=== PATIENT | male | born 1950 | race Caucasian/White ===

== ENCOUNTER 2018-07-06 11:27 | Observation (INO) | payer MEDICARE, OTHER ==
[~2018-07-06] VITALS: Ht 172.7 cm; Wt 68.5 kg
[2018-07-06] VITALS (8 sets, daily range): BP systolic 114–164; BP diastolic 71–96
[2018-07-06 12:55] LABS: HEMATOCRIT 45.6 % (42.0-52.0); HEMOGLOBIN 15.1 gm/dL (14.0-18.0); MCH 30.8 pg (26.0-34.0); MCHC 33.2 g/dL (28.0-37.0); MCV 92.9 fL (80.0-100.0); MPV 7.9 fl. (7.2-11.1); RBC 4.91 mil/uL (4.50-6.00); RDW-CV 14.6 % (10.5-14.5); WBC 11.1 thou/uL (4.0-11.0)
[2018-07-06] MEDS ORDERED: ZANTAC 150MG T150 MG PO (12:56)
[2018-07-06] MEDS ORDERED: NORVASC2.5 MG PO (12:58)
[2018-07-06] MEDS ORDERED: NITROGLYCERIN0.4 MG SUBLING (12:59)
[2018-07-06] MEDS ORDERED: LIPITOR 20 MG T20 M1 PO (13:00)
[2018-07-06] MEDS ORDERED: SPIRIVA INH (13:01)
[2018-07-06] MEDS ORDERED: SINGULAIR 10 MG10 M1 PO (13:02)
[2018-07-06] MEDS ORDERED: SYMBICORT160 MCG/4. INH (13:03)
[2018-07-06] MEDS ORDERED: IPRATROPIU0.2 MG/1 M INH (13:04)
[2018-07-06] MEDS ORDERED: ALBUTEROL2.5 MG/0.5 INH (13:04)
[2018-07-06 13:05] LABS: ANION GAP 10 mmol/L (7-16); APTT 29.2 Seconds (25.0-31.3); BUN 16 mg/dL (7-18); CALCIUM 8.8 mg/dL (8.5-10.1); CHLORIDE 102 mmol/L (98-107); CO2 28 mmol/L (21-32); CREATININE 0.9 mg/dL (0.6-1.3); GLUCOSE 90 mg/dL (70-99); POTASSIUM 4.1 mmol/L (3.5-5.1); PROTIME 10.4 Seconds (9.20-11.50); SODIUM 140 mmol/L (136-145)
[2018-07-06] MEDS ORDERED: CLARITIN10 MG PO (13:05)
[2018-07-06] MEDS ORDERED: PROAIR RESPICL90 MCG INH (13:06)
[2018-07-06] MEDS ORDERED: ASPIRIN325 PO (13:08)
[2018-07-06 13:09] LABS: ALBUMIN 3.2 g/dL (3.4-5.0); ALKALINE PHOSPHATASE 83 U/L (46-116); CHOLESTEROL 114 mg/dL (<200); HDL CHOLESTEROL 38 mg/dL (>40); LDL CHOLESTEROL 63 mg/dL (<100); SGOT 14 U/L (15-37); SGPT 14 U/L (30-65); TOTAL BILIRUBIN 0.7 mg/dL (<0.1-1.0); TOTAL PROTEIN 6.6 g/dL (6.4-8.2); TRIGLYCERIDE 65 mg/dL (<150); VLDL 13 mg/dL (<40)
[2018-07-06 13:10] LABS: SERUM ASSESSMENT Clear
--- NOTE | 2018-07-06 16:31 | EKG ---
[place] [address] ELECTROCARDIOGRAM REPORT Name: DAVID HAYES Room: [facility]#: [id number] Admission: 07/06/18 Attend Phys: Rogelio Gorman MD Discharge: Date of : 48 Report #: [id number] THIS REPORT FOR: //name// [facility] Test Date: 2018-07-06 Test Time: 12:59:40 Pat Name: DAVID ABIGAIL Department: Room: Gender: Craft Worker: [facility] : 1950 Requested By: Rogelio Gorman Order Number: [id number] Reading MD: Rogelio Gorman Measurements Intervals [place] Rate: 86 P: 86 ND: 123 QRS: 85 QRSD: 89 T: 62 QT: 342 QTc: 409 Interpretive Statements Sinus rhythm Low voltage, extremity leads Baseline wander in lead(s) V2 No previous ECG available for comparison Electronically Signed On 07-06-2018 16:31:19 LOW VISION THERAPIST by Rogelio Gorman [email or web address] <ELECTRONICALLY SIGNED> By: Rogelio Gorman MD, MERGED WITH [facility] 07/06/18 163 [id number] Rogelio Gorman MD, FAC /EPI
--- NOTE | 2018-07-06 19:49 | NUR ---
PT ARRIVED TO ROOM 209 FROM DERIVATIVES TRADER AT APPROX 1830, REPORT RECIEVED FROM PRINCESS CHILEL. PT A/OX4, C/O SOME CHEST PAIN, RIGHT WRIST HAS VASC BAND IN PLACE WITH 11 CC OF AIR. NOHEMATOMA OR BLEEDING PRESENT. VSS, PT ORIENTED TO ROOM AND STAFF. PT INSTRUCTED BEDREST UNTILL APPROX 11 PM. PT VERBALIZED UNDERSTANDING, REPORT GIVEN TO NIGHT RN WILL.
[2018-07-07] VITALS: BP 138/68
[2018-07-07 04:00] VITALS: BP 147/85
[2018-07-07 05:50] LABS: HEMATOCRIT 41.9 % (42.0-52.0); HEMOGLOBIN 13.9 gm/dL (14.0-18.0); MCHC 33.2 g/dL (28.0-37.0); MCV 93.4 fL (80.0-100.0); MPV 7.7 fl. (7.2-11.1); RBC 4.48 mil/uL (4.50-6.00); RDW-CV 14.2 % (10.5-14.5)
[2018-07-07 06:14] LABS: ALBUMIN 2.8 g/dL (3.4-5.0); CALCIUM 8.5 mg/dL (8.5-10.1); CREATININE 0.9 mg/dL (0.6-1.3); POTASSIUM 3.9 mmol/L (3.5-5.1); TOTAL BILIRUBIN 0.3 mg/dL (<0.1-1.0); TOTAL PROTEIN 5.9 g/dL (6.4-8.2)
[2018-07-07 06:15] LABS: TROPONIN-I LEVEL 1.02 ng/mL (<0.06)
[2018-07-07 06:24] VITALS: BP 164/71
--- NOTE | 2018-07-07 07:33 | NUR ---
VITALS WNL. SEE MAR. SEE CHARTING. HOURLY ROUNDING FOR SAFETY.
[2018-07-07 08:15] VITALS: BP 144/65
[2018-07-07 08:28] VITALS: BP 144/65
[2018-07-07] MEDS ORDERED: EFFIENT10 MG PO (09:38)
[2018-07-07 10:04] VITALS: BP 144/65
--- NOTE | 2018-07-07 10:50 | NUR ---
IV AND TELE DISCONTINUED. PT UNDERSTANDS ALL FOLLOW UP ORDERS. WILL DC TO HOME.
--- NOTE | 2018-07-07 11:41 | EKG ---
[place] [address] ELECTROCARDIOGRAM REPORT Name: DAVID HAYES Room: [address]#: [id number] Admission: 07/06/18 Attend Phys: Rogelio Gorman MD Discharge: 07/07/18 Date of : 48 Report #: [id number] THIS REPORT FOR: //name// [facility] Test Date: 2018-07-07 Test Time: 08:18:31 Pat Name: DAVID HAYES Department: Room: [facility] Gender: M Sole Tier: : 1950 Requested By: Alf Noble Order Number: [id number] Reading MD: Raza Rodriguez Measurements Intervals [place] Rate: 82 P: 83 FL: 126 QRS: 85 QRSD: 86 T: 69 QT: 356 QTc: 416 Interpretive Statements Sinus rhythm Borderline right axis deviation Low voltage, extremity leads Baseline wander in lead(s) II,aVF Compared to ECG 07/06/2018 12:59:40 No significant changes Electronically Signed On 07-07-2018 11:41:18 BEATER HEAD by Raza Rodriguez [email or web address] <ELECTRONICALLY SIGNED> By: Raza Rodriguez MD, FACC 07/07/18 1141 7 7 Raza Rodriguez MD, [facility] /EPI
--- NOTE | 2018-07-09 12:54 | D ---
[address] [address] DISCHARGE SUMMARY Name: DAVID HAYES Room: [address] Elieser Haq#: [id number] Admission: 07/06/18 Attend Phys: Rogelio Gorman MD Discharge: 07/07/18 Date of : 48 Report #: [id number] THIS REPORT FOR: //name// CC: Rogelio Chung MD DATE OF SERVICE: 07/07/2018 FINAL DIAGNOSES: 1. Unstable angina. 2. Status post percutaneous coronary intervention. 3. Hyperlipidemia. 4. Hypertension. 5. Tobacco use. HOSPITAL SUMMARY: The patient is a 67-year-old man who had been having chest pain and had an abnormal stress test in anterior wall. He underwent successful PCI to left anterior descending coronary artery. This was performed via the right radial artery. He tolerated the procedure well. Tobacco cessation was recommended. DISCHARGE MEDICATIONS: Will include prasugrel 10 mg daily, aspirin 81 mg daily, atorvastatin 20 mg daily, famotidine 20 mg p.o. b.i.d., Pulmicort inhaler, albuterol inhaler, loratadine p.r.n., amlodipine 2.5 mg daily. FOLLOWUP: He will follow up with our nurse practitioner in 1 month. <ELECTRONICALLY SIGNED> By: Royal Guadalupe MD, [facility] 07/09/18 1254 [id number] [id number] Gorman MD, [facility] /nt
--- NOTE | 2018-07-12 16:33 | CARD ---
[address] [address] CARDIAC CATH REPORT Name: DAVID HAYES Room: [address] Elieser Haq#: [id number] Admission: 07/06/18 Attend Phys: Rogelio Gorman MD Discharge: 07/07/18 Date of : 48 Report #: [id number] THIS REPORT FOR: //name// APPROVED REPORT Study performed: 07/06/2018 16:12:14 Patient Details The patient is a 67 year-old male Event Personnel Rogelio Gorman Garbage Stoker, Olivia Kessler RN Supervisor [place], Tamanna Evans RTR Monitor, Vicki Munoz ScrubHardik Anthony ARRMegan (R) Monitor, Alf Noble Feature Writer; Dr. Gorman Procedures Performed ANA Place w/wo Plasty Single LAD; left heart catheterization left ventriculography and selective coronary artery artery Indication Positive stress test Risk Factors Hypercholesterolemia Admission/Lab Medications/Medications given during procedure Aspirin, Platelet Aff. Inhib., Angiomax bolus and infusion Procedure Narrative A Slender Glidesheath sheath was inserted into the right radial artery. Coronary angiography was performed using coronary diagnostic catheters. The right coronary system was accessed and visualized with a Diagnostic TIG 4 catheter. The left coronary system was accessed and visualized with a Diagnostic 3DRC catheter. The left ventricle was accessed and visualized with a Diagnostic Angled Pigtail catheter. Left ventricular/Aortic Valve gradient assessed via catheter pullback. Closure device was deployed with a Fr Vasc-Band Reg 24cm. The patient tolerated the procedure well and there were no complications associated with the procedure. Intraoperative Conscious Sedation Sedation start time: 16:56 Case end Time: 17:76 [place] [address] CARDIAC CATH REPORT Name: DAVID HAYES Room: [address]#: [id number] Admission: 07/06/18 Attend Phys: Rogelio Gorman MD Discharge: 07/07/18 Date of : 48 Report #: [id number] Fentanyl 25 mcg Versed 2 mg Fluoro Time: 20.4 minutes Dose: DAP 52136 cGycm2 1499 mGy Contrast Type and Amount: Omnipaque 160 ml Coronary Angiography The patient's coronary anatomy is right dominant. Diagnostic Cath Left Main 0% narrowing LAD 80% focal proximal stenosis with 60% tubular proximal first diagonal narrowing Circumflex Nondominant vessel with 20% mid vessel narrowing Right Coronary Large dominant vessel with 40% proximal narrowing Left Ventriculography The left ventricle is normal in size with normal contractility. The left ventricular ejection fraction is estimated to be 65-70%. Left ventricular wall motion abnormalities are not present. There is no mitral insufficiency. Hemodynamics The aortic pressure is 102/63 mmHg with a mean of 79 mmHg. The left ventricular pressure is 96/4 mmHg with a mean of mmHg. The left ventricular end diastolic pressure is 11 mmHg. There was no gradient across the aortic valve upon pullback. PCI Technique Lesion Anticoagulation was achieved with Angiomax. Patient was preloaded with Angiomax IV 10.5 mg per kg. Percutaneous coronary intervention was performed on the proximal left anterior descending artery segment. The lesion stenosis prior to intervention was 80% with KAN 3 flow. A 6F XB LAD 3.5 Guide Catheter was used to engage the ostium. A IG: ProwaterFlex 180CM Interventional Guidewire was used to cross the lesion. BALLOON DILATION A Balloon catheter NC Trek RX 2.75 X 8 was inserted and inflated up to 16.00atm for 12seconds. Additional Inflation: 16.00atm for 16seconds. STENT DEPLOYMENT A drug-eluting stent Xience Angely 3.0X12mm was inserted and inflated up to 14.00atm for 18seconds. Additional Inflation: 15.00[place] [address] CARDIAC CATH REPORT Name: DAVID HAYES Room: [address] YuliRKaitlyn#: [id number] Admission: 07/06/18 Attend Phys: Rogelio Gorman MD Discharge: 07/07/18 Date of : 48 Report #: [id number] 13seconds. Additional Inflation: 17.00atm for 13seconds. Final angiography reveals 10 % stenosis with KAN 3 flow. Conclusion #1 significant coronary artery disease characterized by the following: A 80% focal proximal LAD stenosis with 60% proximal first diagonal narrowing B 20% narrowing of the midportion of the nondominant circumflex C dominant right coronary artery with 40% proximal narrowing #2 normal left ventricular systolic function, estimated ejection fraction being 65-70% 3 normal left-sided hemodynamics study #4 successful percutaneous coronary intervention with deployment of drug-eluting stent at the site of 80% focal proximal LAD stenosis with 10% residual narrowing and KAN-3 flow to the distal vessel Recommendations Cardiac Risk Reduction Program Aggressive Medical Therapy Medications Administered Aspirin (any) Prasugrel Diagnostic Cath Approved by: Rogelio Gorman MD Date/Time: 07/12/2018 16:30:36 <ELECTRONICALLY SIGNED> By: Alf Noble MD, [facility] 07/12/18 1633 1633 [id number] Noble MD, FACC /INF
--- NOTE | 2018-07-13 13:45 | H ---
[place] [address] HISTORY AND PHYSICAL Name: DAVID HAYES Wei Room: [address] Elieser Haq#: [id number] Admission: 07/06/18 Attend Phys: Rogelio Gorman MD Discharge: 07/07/18 Date of : 48 Report #: [id number] THIS REPORT FOR: //name// CC: Rogelio Chung PRIMARY CARE PHYSICIAN: Marjorie Chung MD RETANNED LEATHER ROLLER: Rogelio Gorman MD, [facility] CHIEF COMPLAINT: Chest pain, shortness of breath. HISTORY OF PRESENT ILLNESS: The patient is a 67-year-old man with a history of COPD, had been having increasing shortness of breath, but most recently had been having chest discomfort and his nuclear stress test was abnormal in the anterior wall. He denies palpitations. He has no documented history of coronary artery disease, but does have remote history of PAD. He has had prior AIR FILLER of his left lower extremity. PAST MEDICAL HISTORY: Significant for PAD, status post AIR FILLER of left lower extremity, moderate carotid vascular disease, hypertension, hyperlipidemia, tobacco use, emphysema. SOCIAL HISTORY: Current smoker, 1 pack per day, 50 pack years. No alcohol history. ALLERGIES: No known drug allergies. MEDICATIONS: Include the following: Albuterol, Ativan, aspirin, atorvastatin 20 mg daily, Symbicort, lisinopril 20 mg daily, nitroglycerin p.r.n. REVIEW OF SYSTEMS: GASTROINTESTINAL: No nausea, vomiting or hematemesis. GENITOURINARY: No dysuria or hematuria. NEUROLOGY: No headaches, blurry vision, slurred speech or weakness. CARDIOVASCULAR: Positive chest pain. PULMONARY: Positive shortness of breath. SKIN: No rashes. PHYSICAL EXAMINATION: VITAL SIGNS: Blood pressure 138/80, weight is 154 pounds. GENERAL: This is a pleasant middle-aged male. He is alert, in no apparent distress. NECK: Supple. No jugular venous distention. There are no bruits. CARDIOVASCULAR: Regular. I [place] [address] HISTORY AND PHYSICAL Name: ABIGAILDAVID D Room: [address] [place]#: [id number] Admission: 07/06/18 Attend Phys: Rogelio Gorman MD Discharge: 07/07/18 Date of : 48 Report #: [id number] PULMONARY: No wheezing or asthma. SKIN: There are no rashes. NEUROLOGIC: There are no focal deficits. DIAGNOSTIC DATA: Electrocardiogram showed a sinus rhythm. Nuclear stress test revealed a fixed anterior defect. IMPRESSION: 1. Angina. 2. Abnormal stress test. 3. Peripheral vascular disease. 4. Hyperlipidemia. 5. Hypertension. 6. Tobacco use. PLAN: Given the patient's risk factor profile, abnormal stress test and clinical symptoms compatible for angina, we recommended further evaluation with a cardiac catheterization revascularization based on findings. Risks and benefits were described to the patient. The patient elects to proceed. <ELECTRONICALLY SIGNED> By: Rogelio Gorman MD, FACC 07/13/18 1345 1739 [id number] Gorman MD, FACC /nt
== END 2018-07-07 11:00 | disposition home or self-care (01) ==
LOC: M.CL 11:27 → M.2W 18:00
PROVIDERS: Internal Medicine; ADMIT Internal Medicine Cardiovascular Disease
DX: I25.110 Atherosclerotic heart disease of native coronary artery with unstable angina pectoris (principal); E78.5 Hyperlipidemia, unspecified; I10 Essential (primary) hypertension; R94.39 Abnormal result of other cardiovascular function study; I73.9 Peripheral vascular disease, unspecified; F17.210 Nicotine dependence, cigarettes, uncomplicated; J44.9 Chronic obstructive pulmonary disease, unspecified; I65.29 Occlusion and stenosis of unspecified carotid artery; Z79.82 Long term (current) use of aspirin; Z79.899 Other long term (current) drug therapy; Z95.5 Presence of coronary angioplasty implant and graft; Z98.890 Other specified postprocedural states